=== PATIENT | male | born 1970 | race African-American/Black ===

== ENCOUNTER 2019-12-05 16:39 | Emergency (ER) | payer BC, SELFPAY ==
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
[2019-12-05 16:53] VITALS: BP 155/89; PULSE 95; RESP 18; TEMP 38.3; O2SAT 98
[2019-12-05 16:57] VITALS: PULSE 90
[2019-12-05] MEDS: LACTATED RINGERS 1,000 ML 999 ML IV CONT (17:15)
[2019-12-05 17:31] LABS: Basophils Percent Auto 0.3 % (0.2-1.2); Hematocrit 47.1 % (42.0-52.0); Hemoglobin 16.1 g/dL (14.0-18.0); Immature Granulocyte Absolute 0.03 K/mm3 (0.00-0.031); Immature Granulocyte Percent A 0.4 % (0-0.5); Lymphocytes Absolute Auto 0.93 K/mm3 (0.9-3.2); Lymphocytes Percent Auto 13.6 % (18.3-44.2); Mean Corpuscular HGB Conc 34.2 g/dl (32-36); Mean Corpuscular Hemoglobin 30.4 pg (26-34); Mean Platelet Volume 9.9 fl (7.4-10.4); Monocytes Absolute Auto 0.6 K/mm3 (0.1-0.6); Monocytes Percent Auto 8.9 % (2.6-8.5); Neutrophils Absolute Auto 5.3 K/mm3 (1.3-6.7); Neutrophils Percent Auto 76.8 % (45.5-73.1); Platelet Count Result 199 k/mm3 (150-375); Red Blood Count 5.29 M/mm3 (4.6-6.20); White Blood Count 6.9 K/mm3 (4.5-10.0)
[2019-12-05 17:40] LABS: Prothrombin Time 12.4 Seconds (11.1-14.7)
[2019-12-05 17:41] LABS: Partial Thromboplastin Time 29.9 SECONDS (22.3-36.8)
[2019-12-05 17:43] LABS: Alanine Aminotransferase 15 U/L (4-50); Albumin Level 4.3 g/dL (3.5-5.1); Alkaline Phosphatase 86 U/L (38-126); Aspartate Amino Transferase 30 U/L (17-59); Blood Urea Nitrogen 10 mg/dL (9-20); Calcium 9.1 mg/dL (8.4-10.2); Carbon Dioxide 31 mmol/L (22-30); Chloride 101 mmol/L (98-107); Estimated CRCL calculation 69 ml/min; Estimated Glomerular Filt Rate > 60; Glucose 103 mg/dL (75-110); Potassium 3.7 mmol/L (3.4-5.0); Sodium 137 mmol/L (137-145)
[2019-12-05 17:53] LABS: CRP 2.2 mg/dL (<1.0)
[2019-12-05 18:02] LABS: Lactic Acid Reflex 1.7 mmol/L (0.7-2.1)
[2019-12-05 18:15] VITALS: BP 136/80; PULSE 97; RESP 18; O2SAT 97
[2019-12-05 18:33] VITALS: BP 144/79; PULSE 102; RESP 18; TEMP 38.8; O2SAT 97
[2019-12-05] MEDS: ACETAMINOPHEN 500 MG TABLET 1000 MG PO (18:53)
== END 2019-12-05 19:15 | disposition home or self-care (01) ==
PROVIDERS: Emergency Provider Emergency Medicine; PCP Internal Medicine
DX: J02.0 Streptococcal pharyngitis (principal); I10 Essential (primary) hypertension; E78.5 Hyperlipidemia, unspecified; M79.5 Residual foreign body in soft tissue; D49.0 Neoplasm of unspecified behavior of digestive system
CPT/HCPCS: 36415; 71046; 80053; 83605; 85025; 85610; 85730; 86140; 87040; 87804; 87880; 96360; 99283; A9270; J7120

== ENCOUNTER 2019-12-07 15:54 | Emergency (ER) | payer BC, SELFPAY ==
--- NOTE | ~2019-12-07 | XR_ITS ---
EXAMINATION: XR chest 1V portable DATE: 12/07/2019 17:12 INDICATION: Cough. TECHNIQUE: A single frontal view of the chest was obtained. COMPARISON: Chest 2 views 12/05/2019 FINDINGS: There are mild airspace opacities in right midlung zone. No pleural effusion or pneumothora x. The heart size is normal. Again seen is a radiopaque foreign body inferior to the diaphragm that w as in the posterior body wall on the prior radiographs. IMPRESSION: 1. New mild airspace opacities in right midlung zone, consistent with atelectasis versus pneumonia. Reviewed, dictated and finalized at location A. IMPRESSION: 1. New mild airspace opacities in right midlung zone, consistent with atelectas is versus pneumonia.
[2019-12-07 15:53] VITALS: BP 137/86; PULSE 91; RESP 20; TEMP 36.6; O2SAT 100
[2019-12-07] MEDS: SODIUM CHLORIDE 0.9% IV 1,000 ML 999 ML IV CONT ×2 (16:31→17:41)
[2019-12-07] MEDS: ONDANSETRON INJ 4 MG/2 ML VIAL IV PUSH (16:32)
[2019-12-07] MEDS: FAMOTIDINE 20 MG/2 ML VIAL IV PUSH (16:32)
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
[2019-12-07] MEDS: DEXAMETHASONE SOD PHOS INJ 4 MG/ML VIAL IV PUSH (17:05)
[2019-12-07 17:22] LABS: Basophils Percent Auto 0.2 % (0.2-1.2); Hematocrit 39.4 % (42.0-52.0); Hemoglobin 14.2 g/dL (14.0-18.0); Immature Granulocyte Absolute 0.03 K/mm3 (0.00-0.031); Immature Granulocyte Percent A 0.7 % (0-0.5); Lymphocytes Absolute Auto 0.81 K/mm3 (0.9-3.2); Lymphocytes Percent Auto 18.2 % (18.3-44.2); Mean Corpuscular Hemoglobin 32.5 pg (26-34); Mean Corpuscular Volume 90.2 fl (80-100); Mean Platelet Volume 9.7 fl (7.4-10.4); Monocytes Absolute Auto 0.7 K/mm3 (0.1-0.6); Monocytes Percent Auto 14.6 % (2.6-8.5); Neutrophils Absolute Auto 2.9 K/mm3 (1.3-6.7); Neutrophils Percent Auto 66.3 % (45.5-73.1); Platelet Count Result 157 k/mm3 (150-375); Red Blood Count 4.37 M/mm3 (4.6-6.20); Red Cell Distribution Width 13.3 % (11.5-14.5); White Blood Count 4.4 K/mm3 (4.5-10.0)
[2019-12-07 17:39] LABS: Lactic Acid Reflex 1.3 mmol/L (0.7-2.1)
[2019-12-07 17:41] LABS: Alanine Aminotransferase 17 U/L (4-50); Albumin Level 3.4 g/dL (3.5-5.1); Alkaline Phosphatase 53 U/L (38-126); Aspartate Amino Transferase 34 U/L (17-59); Bilirubin,Total 0.7 mg/dL (0.2-1.3); Blood Urea Nitrogen 14 mg/dL (9-20); Calcium 8.1 mg/dL (8.4-10.2); Carbon Dioxide 29 mmol/L (22-30); Chloride 104 mmol/L (98-107); Estimated CRCL calculation 77 ml/min; Estimated Glomerular Filt Rate > 60; Glucose 107 mg/dL (75-110); Lipase 66 U/L (23-300); Potassium 3.7 mmol/L (3.4-5.0); Sodium 135 mmol/L (137-145)
[2019-12-07] MEDS: PENICILLIN G BENZATHINE 1,200,000 UNITS/2 ML SYRINGE 1200000 UNITS IM (18:16)
[2019-12-07 18:33] VITALS: PULSE 90; RESP 20; TEMP 37.1; O2SAT 99
== END 2019-12-07 18:34 | disposition home or self-care (01) ==
PROVIDERS: Emergency Medicine Emergency Medical Services; Emergency Provider Emergency Medicine; PCP Internal Medicine
DX: J18.9 Pneumonia, unspecified organism (principal); I10 Essential (primary) hypertension; E78.5 Hyperlipidemia, unspecified; M79.5 Residual foreign body in soft tissue; J02.0 Streptococcal pharyngitis; D49.0 Neoplasm of unspecified behavior of digestive system
CPT/HCPCS: 36415; 71045; 80053; 83605; 83690; 85025; 87040; 87804; 96361; 96365; 96372; 96375; 99284; J0131; J0561; J1100; J2405; J7030